=== PATIENT | female | born 1955 | race Caucasian/White ===

== ENCOUNTER 2020-02-24 05:51 | Inpatient (IN) ==
--- NOTE | 2020-01-28 13:32 | PAT Medication Instructions ---
Medication Instructions Date of Service January 28, 2020 Home Medications aspirin [Aspir-81] 81 mg PO QAM calcium carbonate-vitamin D3 [Calcium 600 + D(3)] 2 cap PO QAM celecoxib [Celebrex] 200 mg PO QAM duloxetine 60 mg PO QAM lisinopril-hydrochlorothiazide 1 tab PO QAM loratadine [Claritin] 10 mg PO QAM meloxicam 15 mg PO QAM multivitamin 1 tab PO QAM omega-3 fatty acids [Fish Oil Concentrate] 1,000 mg PO QAM simvastatin 40 mg PO QAM ASK your surgeon for instructions celecoxib [Celebrex] 200 mg PO QAM meloxicam 15 mg PO QAM ASK your prescriber and surgeon aspirin [Aspir-81] 81 mg PO QAM STOP taking 2 weeks before surgery (or as soon as possible if surgery is within 2 weeks) omega-3 fatty acids [Fish Oil Concentrate] 1,000 mg PO QAM DO NOT take the morning of surgery calcium carbonate-vitamin D3 [Calcium 600 + D(3)] 2 cap PO QAM lisinopril-hydrochlorothiazide 1 tab PO QAM loratadine [Claritin] 10 mg PO QAM multivitamin 1 tab PO QAM Take morning of surgery With a small sip of water, OTHERWISE NOTHING TO EAT OR DRINK AFTER MIDNIGHT: duloxetine 60 mg PO QAM simvastatin 40 mg PO QAM Other Notes If you have any questions please call us at [phone] or [phone] or [phone] or [phone]
--- NOTE | 2020-01-31 12:16 | Anesthesiology Consultation ---
Date of Service January 31, 2020 Assessment & Plan (1) Encounter for pre-operative examination: COVID Status: As of 01/30 assessment, patient denies travel to endemic area, known exposure/sick contacts, or symptoms of COVID19. Patient instructed that they and their household members must follow strict social distancing guidelines, wear a mask in public and avoid travel for 14 days prior to surgery. Preoperative COVID19 testing to be completed prior to surgery per surgeon's arra [id number]. Patient made aware to self-isolate as much as possible between COVID testing and surgery. BSG AM DOS Chart Review Chart Review: Acceptable Risk for Surgery (pending CXR faxed for at PAT - and surgeon ordered PCP clearance) and Patient seen in Pre Admission Testing Teaching & Discussion Instructed NPO after midnight before surgery, except medications with 15 cc of water. Medication instructions provided according to the PAT guidelines. History Surgery Operation Date: 02/24/20 10:50 Proposed Procedures p Right Total Shoulder Arthroplasty Aide - Doroteo Jaimes MD Height/Weight Height: 5 ft 4 in Weight: 83.9 kg Allergies Allergy/AdvReac Type Severity Reaction Status Date / Time naproxen [From Aleve] Allergy Unknown Rash Verified 01/28/20 11:45 Medications Home Medications Medication Instructions Recorded Confirmed Last Taken aspirin [Aspir-81] 81 mg PO QAM 01/28/20 01/28/20 Unknown calcium carbonate-vitamin D3 2 cap PO QAM 01/28/20 01/28/20 Unknown [Calcium 600 + D(3)] celecoxib [Celebrex] 200 mg PO QAM 01/28/20 01/28/20 Unknown duloxetine 60 mg PO QAM 01/28/20 01/28/20 Unknown lisinopril-hydrochlorothiazide 1 tab PO QAM 01/28/20 01/28/20 Unknown loratadine [Claritin] 10 mg PO QAM 01/28/20 01/28/20 Unknown meloxicam 15 mg PO QAM 01/28/20 01/28/20 Unknown multivitamin 1 tab PO QAM 01/28/20 01/28/20 Unknown omega-3 fatty acids [Fish Oil 1,000 mg PO QAM 01/28/20 01/28/20 Unknown Concentrate] simvastatin 40 mg PO QAM 01/28/20 01/28/20 Unknown Past Medical History Medical History Anxiety Arthritis Depression Diabetes A1C 7.1%, glucose 161 on pre-op labs. Patient did not report h/o DM, will fax labs to PCP for review. Hyperlipidemia Hypertension Exercise / Class Metabolic Activity II 4-5 Yardwork/Stairs/Walk up hill Past Family History Family History Father Family hx of colon cancer Past Surgical History Surgical History H/O ovarian cystectomy H/O shoulder surgery RIGHT X 2 History of appendectomy History of colonoscopy History of total knee replacement R/L Nausea and vomiting after administration of anesthetic agent S/P foot surgery, left LIGAMENT REPAIR Status post trigger finger release R/L Past Anesthesia History No Hx of Anesthesia Complications (other than PONV) and No Family Hx of Anesthesia Complications History of PONV No Hx of Motion Sickness and History of PONV (single episode after most recent colonoscopy) Social History Smoking Status: Current every day smoker Smoking cigarettes per day: 10 CIGS X 40 YRS Do You Dip or Chew Tobacco: No Hx Alcohol Use: Yes Alcohol type: beer and hard liquor alcohol intake frequency: holidays/special occasions only (once/month) Hx Substance Use: No Review of Systems Pt denies any recent chest pain, shortness of breath, palpitations, cough, fever, URI, or uncontrolled acid reflux. Physical Exam Vital Signs BP: 135/82 P: 118 (pt reports this is baseline, PCP monitors, denies any assc. symptoms) SPO2: 98% RA T: 97.8 F R: 16 ENMT Mouth: no dental restorations, no chipped teeth and no loose teeth Thyromental Distance: < 3.5 Finger Breadths (3) Mallampati Class: I Neck normal visual inspection; neck extension not limited Respiratory normal respiratory effort Auscultation: lungs clear to auscultation bilaterally Cardiovascular Rate/Rhythm: regular rhythm and + tachycardic Heart Sounds: no murmur Vessels: no carotid bruit Extremities: no edema Testing Laboratory Results 01/31/20 12:04 01/31/20 12:04 PT 10.4 Seconds (9.0-12.0) 01/31/20 12:04 INR 1.0 (0.9-1.1) 01/31/20 12:04 APTT 26.1 Seconds (21.0-31.0) 01/31/20 12:04 Hemoglobin A1c 7.1 % (4.5-5.6) H 01/31/20 12:04 Urine Color Yellow 01/31/20 12:04 Urine Appearance Clear (Clear) 01/31/20 12:04 Urine pH 7.0 (4.5-7.5) 01/31/20 12:04 Ur Specific [place] 1.013 (1.000-1.030) 01/31/20 12:04 Urine Protein Negative (Negative) 01/31/20 12:04 Urine Glucose (UA) Negative (Negative) 01/31/20 12:04 Urine Ketones Negative (Negative) 01/31/20 12:04 Urine Nitrite Negative (Negative) 01/31/20 12:04 Ur Leukocyte Esterase Negative (Negative) 01/31/20 12:04 Blood Type A Positive 01/31/20 12:04 Antibody Screen NEGATIVE 01/31/20 12:04 01/31/20 12:04 Urine Culture - Final Urine,Clean Catch More than three types of organisms present, all moderate counts mixed probable skin bienvenido. No further identifications or sensitivities to follow. *Labs forwarded to PCP for review; h/o DM was not reported by patient. Electrocardiogram Date: 01/31/20 Findings: + ST @ (112bpm)
[2020-01-31 12:41] LABS: Appearance Urine Clear (Clear); Basophils # (auto) 0.03 K/uL (0-0.2); Basophils % (auto) 0.4 %; Bilirubin Urine Negative (Negative); Blood Urine Negative (Negative); Color Urine Yellow; Eosinophils # (auto) 0.52 K/uL (0-0.5); Eosinophils % (auto) 6.8 %; Glucose Urine UA Negative (Negative); Hematocrit (blood only) 44.2 % (37-47); Hemoglobin 15.1 g/dL (12.0-16.0); Immature Granulocytes # (auto) 0.02 K/uL (0.00-0.02); Immature Granulocytes % (auto) 0.3 %; Ketones Urine Negative (Negative); Leukocyte Esterase Urine Negative (Negative); Lymphocytes # (auto) 2.21 K/uL (1.2-3.4); Mean Corpuscular Hemoglobin 32.7 pg (25-34); Mean Corpuscular Hgb Conc 34.2 g/dL (32-36); Mean Corpuscular Volume 95.7 fL (80-100); Mean Platelet Volume 9.1 fL (7.4-10.4); Monocytes # (auto) 0.57 K/uL (0.11-0.59); Monocytes % (auto) 7.5 %; Neutrophils # (auto) 4.28 K/uL (1.4-6.5); Nitrite Urine Negative (Negative); Platelet Count 296 K/uL (130-400); Protein Urine Negative (Negative); RDW Coefficient of Variation 13.5 % (11.5-14.5); RDW Standard Deviation 46.4 fL (36.4-46.3); Red Blood Count 4.62 M/uL (4.2-5.4); Specific Gravity Urine 1.013 (1.000-1.030); Urobilinogen Urine Negative (Negative); White Blood Count 7.63 K/uL (4.8-10.8)
[2020-01-31 12:52] LABS: Albumin Level 3.7 gm/dl (3.4-5.0); Calcium 9.6 mg/dl (8.5-10.1); Creatinine Clr Calc Pharmacy 81.5 ml/min; Est GFR (African American) 99.9; Est GFR (Non-African American) 86.2; Potassium 3.9 mmol/L (3.5-5.1)
[2020-01-31 12:53] LABS: Partial Thromboplastin Ratio 0.9; Partial Thromboplastin Time 26.1 Seconds (21.0-31.0); Prothrombin Time 10.4 Seconds (9.0-12.0)
[2020-01-31 13:18] LABS: Estimated Average Glucose 157 mg/dl; Hemoglobin A1C 7.1 % (4.5-5.6)
--- NOTE | 2020-01-31 15:20 | Electrocardiogram Report ---
Test Reason : Blood Pressure : / mmHG Vent. Rate : 112 BPM Atrial Rate : 112 BPM P-R Int : 178 ms QRS Dur : 092 ms QT Int : 336 ms P-R-T Axes : 071 084 074 degrees QTc Int : 458 ms Sinus tachycardia Otherwise normal ECG No previous ECGs available Confirmed by Dakota Adam ([id number]) on 01/31/2020 3:20:12 PM Referred By: Doroteo Jaimes Confirmed By:Dakota Adam
--- NOTE | 2020-02-05 09:55 | History & Physical Report ---
Date of Service February 05, 2020 Assessment & Plan (1) Rotator cuff arthropathy of right shoulder: Treatment options discussed with the patient. She has a massive irreparable rotator cuff tear. She has continued pain and dysfunction despite conservative measures as above. Risks, benefits and alternatives to surgery including but not limited to infection, DVT, pain, stiffness, need for revision surgery, damage to blood vessels, damage to nerves, PE, , were discussed with the patient and they wish to proceed. Plan will be for right reverse total shoulder arthroplasty on 02/24/20 at [facility]. Will plan on home health PT post discharge from the hospital. All questions answered. She will follow up post operatively. History of Present Illness Chief Complaint: Right shoulder pain Primary Care Provider: Nguyen Aguayo 64 year old female with PMHx significant for HTN, high cholesterol, and depression presents with longstanding right shoulder pain. She has had 2 previous rotator cuff repair surgeries which have failed, most recently June of this year. She has continued pain and dysfunction of her shoulder with daily activity. Updated MRI demonstrates massive retracted re tear of her rotator cuff with fatty atrophy and humeral head elevation. she has failed conservative measures including cortisone injection and therapy, as well as anti- inflammatory medicaitons. Patient denies headaches, sweats, fevers, chills, double vision, blurred vision, cough, sore throat, dysphagia, chest pain, sob, wheezing, n/v/d/c, numbness, tingling, fatigue, urinary symptoms, mood disorders. ROS positive for right shoulder pain and stiffness. Allergies Allergy/AdvReac Type Severity Reaction Status Date / Time naproxen [From Aleve] Allergy Unknown Rash Verified 01/28/20 11:45 Home Medications Home Medications Medication Instructions Recorded Confirmed Type aspirin [Aspir-81] 81 mg PO QAM 01/28/20 01/28/20 History calcium carbonate-vitamin D3 2 cap PO QAM 01/28/20 01/28/20 History [Calcium 600 + D(3)] celecoxib [Celebrex] 200 mg PO QAM 01/28/20 01/28/20 History duloxetine 60 mg PO QAM 01/28/20 01/28/20 History lisinopril-hydrochlorothiazide 1 tab PO QAM 01/28/20 01/28/20 History loratadine [Claritin] 10 mg PO QAM 01/28/20 01/28/20 History meloxicam 15 mg PO QAM 01/28/20 01/28/20 History multivitamin 1 tab PO QAM 01/28/20 01/28/20 History omega-3 fatty acids [Fish Oil 1,000 mg PO QAM 01/28/20 01/28/20 History Concentrate] simvastatin 40 mg PO QAM 01/28/20 01/28/20 History Past Med/Surg History Medical History Anxiety Arthritis Depression Diabetes A1C 7.1%, glucose 161 on pre-op labs. Patient did not report h/o DM, will fax labs to PCP for review. Hyperlipidemia Hypertension Surgical History H/O ovarian cystectomy H/O shoulder surgery RIGHT X 2 History of appendectomy History of colonoscopy History of total knee replacement R/L Nausea and vomiting after administration of anesthetic agent S/P foot surgery, left LIGAMENT REPAIR Status post trigger finger release R/L Family History Father Family hx of colon cancer Social History Smoking Status: Current every day smoker Cigarettes Per Day: 10 CIGS X 40 YRS; Second Hand Exposure: No; Do You Dip or Chew Tobacco: No; Hx Alcohol Use: Yes Alcohol type: beer and hard liquor Hx Substance Use: No Preferred Language: [place] Communication Ability: Effective Fire Hazard Inspector Required: No Beliefs That Will Affect Care: None Current Living Situation: Spouse Other Information That Helps Us Care for You: No Feels Safe at Home: Yes Safety Concerns: Feels Safe At This Time Review of Systems All systems reviewed & are unremarkable except as noted in HPI & below Physical Exam Constitutional: well developed and well nourished; no acute distress Eyes: PERRL, conjunctivae normal, anicteric sclerae ENMT: external ear and nose normal, oropharynx normal Neck: trachea midline, no thyromegaly Respiratory: normal respiratory effort, lungs clear to auscultation Cardiovascular: RRR, no murmur, no edema Musculoskeletal: Right shoulder: Active forward flexion 0 to 90 degrees active abduction 0 to 80 degrees external rotation is to neutral internal rotation is to the back pocket. Weakness to supraspinatus, infraspinatus, subscapularis Skin: no rashes, warm and dry Neurologic: patellar DTR's 2+ bilat, sensation intact Psychiatric: A+Ox3, euthymic affect Results & Data ([facility]) Laboratory Results Lab Results 01/31/20 01/31/20 01/31/20 Range/Units 12:04 12:04 12:04 WBC 7.63 (4.8-10.8) K/uL RBC 4.62 (4.2-5.4) M/uL Hgb 15.1 (12.0-16.0) g/dL Hct 44.2 (37-47) % MCV 95.7 (80-100) fL MCH 32.7 (25-34) pg MCHC 34.2 (32-36) g/dL RDW Std Deviation 46.4 H (36.4-46.3) fL RDW Coeff of Meliza 13.5 (11.5-14.5) % Plt Count 296 (130-400) K/uL MPV 9.1 (7.4-10.4) fL Immature Gran % (Auto) 0.3 % Neut % (Auto) 56.0 % Lymph % (Auto) 29.0 % [place] % (Auto) 7.5 % Eos % (Auto) 6.8 % Baso % (Auto) 0.4 % Neut # (Auto) 4.28 (1.4-6.5) K/uL Lymph # (Auto) 2.21 (1.2-3.4) K/uL [place] # (Auto) 0.57 (0.11-0.59) K/uL Eos # (Auto) 0.52 H (0-0.5) K/uL Baso # (Auto) 0.03 (0-0.2) K/uL Immature Gran # (Auto) 0.02 (0.00-0.02) K/uL PT 10.4 (9.0-12.0) Seconds INR 1.0 (0.9-1.1) APTT 26.1 (21.0-31.0) Seconds PTT Ratio 0.9 Sodium 138 (136-145) mmol/L Potassium 3.9 (3.5-5.1) mmol/L Chloride 103 (98-107) mmol/L Carbon Dioxide 29 (21-32) mmol/L Anion Gap 5.0 (3-11) BUN 22 H (7-18) mg/dl Creatinine 0.74 (0.6-1.2) mg/dl Est Cr Clr Drug Dosing 81.5 ml/min Est GFR ( Amer) 99.9 Est GFR (Non-Af Amer) 86.2 BUN/Creatinine Ratio 29.0 H (10-20) Glucose 161 H (70-99) mg/dl Estimat Average Glucose mg/dl Hemoglobin A1c (4.5-5.6) % Calcium 9.6 (8.5-10.1) mg/dl Albumin 3.7 (3.4-5.0) gm/dl Urine Color Urine Appearance (Clear) Urine pH (4.5-7.5) Ur Specific [place] (1.000-1.030) Urine Protein (Negative) Urine Glucose (UA) (Negative) Urine Ketones (Negative) Urine Blood (Negative) Urine Nitrite (Negative) Urine Bilirubin (Negative) Urine Urobilinogen (Negative) Ur Leukocyte Esterase (Negative) Blood Type Antibody Screen 01/31/20 01/31/20 01/31/20 Range/Units 12:04 12:04 12:04 WBC (4.8-10.8) K/uL RBC (4.2-5.4) M/uL Hgb (12.0-16.0) g/dL Hct (37-47) % MCV (80-100) fL MCH (25-34) pg MCHC (32-36) g/dL RDW Std Deviation (36.4-46.3) fL RDW Coeff of Meliza (11.5-14.5) % Plt Count (130-400) K/uL MPV (7.4-10.4) fL Immature Gran % (Auto) % Neut % (Auto) % Lymph % (Auto) % [place] % (Auto) % Eos % (Auto) % Baso % (Auto) % Neut # (Auto) (1.4-6.5) K/uL Lymph # (Auto) (1.2-3.4) K/uL [place] # (Auto) (0.11-0.59) K/uL Eos # (Auto) (0-0.5) K/uL Baso # (Auto) (0-0.2) K/uL Immature Gran # (Auto) (0.00-0.02) K/uL PT (9.0-12.0) Seconds INR (0.9-1.1) APTT (21.0-31.0) Seconds PTT Ratio Sodium (136-145) mmol/L Potassium (3.5-5.1) mmol/L Chloride (98-107) mmol/L Carbon Dioxide (21-32) mmol/L Anion Gap (3-11) BUN (7-18) mg/dl Creatinine (0.6-1.2) mg/dl Est Cr Clr Drug Dosing ml/min Est GFR ( Amer) Est GFR (Non-Af Amer) BUN/Creatinine Ratio (10-20) Glucose (70-99) mg/dl Estimat Average Glucose 157 mg/dl Hemoglobin A1c 7.1 H (4.5-5.6) % Calcium (8.5-10.1) mg/dl Albumin (3.4-5.0) gm/dl Urine Color Yellow Urine Appearance Clear (Clear) Urine pH 7.0 (4.5-7.5) Ur Specific [place] 1.013 (1.000-1.030) Urine Protein Negative (Negative) Urine Glucose (UA) Negative (Negative) Urine Ketones Negative (Negative) Urine Blood Negative (Negative) Urine Nitrite Negative (Negative) Urine Bilirubin Negative (Negative) Urine Urobilinogen Negative (Negative) Ur Leukocyte Esterase Negative (Negative) Blood Type A Positive Antibody Screen NEGATIVE Diagnostic Findings Right shoulder MRI demonstrates massive retracted rotator cuff tear with humeral head elevation, glenohumeral arthrosis.
[2020-02-24] MEDS ORDERED: FAMOTIDINE 20 MG TAB PO SCH (06:00)
[2020-02-24] MEDS ORDERED: CEFAZOLIN 2000MG 2,000 MG/15 ML SYR IV SCH (06:00)
[2020-02-24] MEDS ORDERED: CeleBREX 200 MG CAP PO SCH (06:00)
[2020-02-24] MEDS ORDERED: ROPIVACAINE 0.5% HCL/PF 150 MG, BUPIVACAINE 0.5% MPF 30 ML, EPINEPHrine 30MG/30ML (OR U... INSTIL SCH (06:00)
[2020-02-24] MEDS ORDERED: dexAMETHasone 4 MG TAB PO SCH (06:00)
[2020-02-24] MEDS ORDERED: ACETAMINOPHEN 500 MG TAB PO SCH (06:00)
[2020-02-24] MEDS ORDERED: LR 15ML/HR IV SCH (06:00)
[2020-02-24] MEDS ORDERED: METOCLOPRAMIDE HCL 10 MG TABLET PO SCH (06:00)
[2020-02-24] MEDS ORDERED: GABAPENTIN 600 MG DOSE PO SCH (06:00)
[2020-02-24] MEDS ORDERED: ROPIVACAINE 0.5% 5 MG/ML 30 ML VIAL ONE (06:30)
[2020-02-24] MEDS ORDERED: ePHEDrine sulfate 50 MG/ML SYR ONE (06:41)
[2020-02-24] MEDS ORDERED: NEOSTIGMINE METHYLSULFATE 5 MG/5 ML SYR ONE (06:41)
[2020-02-24] MEDS ORDERED: MIDAZOLAM HCL 1 MG/ML 2ML VIAL ONE (06:41)
[2020-02-24] MEDS ORDERED: DEXAMETHASONE SOD INJ 4 MG/ML VIAL ONE (06:41)
[2020-02-24] MEDS ORDERED: ROCURONIUM BROMIDE 10 MG/ML 5 ML VIAL IV ONE ×2 (06:41→11:16)
[2020-02-24] MEDS ORDERED: PHENYLEPHRINE 100MCG/ML 5ML SYR ONE (06:41)
[2020-02-24] MEDS ORDERED: LARYING-O-JET KIT (LTA) ONE (06:41)
[2020-02-24] MEDS ORDERED: fentaNYL citrate 100 MCG/2 ML VIAL ONE (06:41)
[2020-02-24] MEDS ORDERED: LIDOCAINE HCL 2% 2 ML VIAL/AMP(20MG/ML) INFIL ONE (06:41)
[2020-02-24] MEDS ORDERED: PROPOFOL IV EMULSION 10 MG/ML 20 ML VIAL IV ONE (06:41)
[2020-02-24] MEDS ORDERED: GLYCOPYRROLATE 0.2 MG/ML VIAL ONE (06:41)
[2020-02-24] MEDS ORDERED: ONDANSETRON INJ 2 MG/ML 2 ML VIAL ONE (06:41)
--- NOTE | 2020-02-24 06:58 | History & Physical Bridge Note ---
Date of Service February 24, 2020 History & Physical Bridge Note I have examined the patient, reviewed the History & Physical and in the interval since the performance of the History & Physical I have noted the following changes of clinical significance: no changes noted
[2020-02-24] MEDS ORDERED: BACITRACIN INJ 50,000 UNIT VIAL ONE (07:12)
[2020-02-24] MEDS ORDERED: HYDROmorphone INJ 1 MG/ML SYRINGE IV PRN (07:58)
[2020-02-24] MEDS ORDERED: ONDANSETRON INJ 2 MG/ML 2 ML VIAL IV PRN ×2 (07:58→13:24)
[2020-02-24] MEDS ORDERED: ATROPINE SULFATE 0.1 MG/ML 10ML SYR IV PRN (07:58)
[2020-02-24] MEDS ORDERED: VANCOMYCIN HCL 1000MG/20ML VIAL ONE (09:06)
[2020-02-24] MEDS ORDERED: PHENYLEPHRINE HCL 10 MG/ML VIAL ONE (11:34)
--- NOTE | 2020-02-24 12:14 | Operative Report ---
Post Operative Report Pre & Post Diagnosis Operation Date: 02/24/20 08:00 Pre-Op Diagnosis: Right Shoulder rotator cuff arthropathy Post-Op Diagnosis: Right Shoulder rotator cuff arthropathy I identified the patient and participated in the time-out.: Yes Procedure Operation Date: 02/24/20 08:00 Actual Procedures p Right Reverse Total Shoulder Arthroplasty; Open Reduction Internal Fixation of Humeral Fracture(Right) - Doroteo Jaimes MD Surgeon Doroteo Jaimes MD Supply Chain Program Manager Bertin Grady PA-C Estimated Blood Loss 50 Findings Consistent with Post-Op Diagnosis Specimens Bone and tissue Drains 1 Hemovac Anesthesia Type General Regional Complications Intraoperative proximal humerus fracture. This was treated with cable fixation and placement of a longer press-fit stem. Disposition Accompanied Patient To Recovery: No Disposition: Recovery Room Indications Patient is a 64-year-old female who has had multiple attempts at rotator cuff repair. MRI has demonstrated re-tear with massive tearing and retraction back to the level of the glenoid with significant superior humeral head migration. She is failed conservative measures including cortisone injection, physical therapy, anti-inflammatory medications and wishes to proceed with a right reverse total shoulder arthroplasty Description of Procedure Risks, benefits and alternatives to surgery including, but not limited to, infection DVT, pain, stiffness, need for revision surgery, failure to relieve all symptoms, damage to blood vessels, damage to nerves, risk of anesthesia were discussed with the patient and they wished to proceed. The patient was identified. Laterality was confirmed and marked. The patient received a preoperative antibiotic as well as an interscalene block. They were transferred to the operating room and placed in the supine position and induced into general endotracheal anesthesia per the anesthesia staff. The patient was then safely transferred to a slight beachchair position. The patient was secured in the Tenet positioner. All pressure points were well padded. The shoulder was prepped and draped in the usual sterile manner with ChloraPrep. The arm was secured in the Spider cazares. I made a longitudinal incision just lateral to the coracoid, sharply incising through the skin and utilizing Bovie electrocautery to achieve hemostasis. I identified the cephalic vein and mobilized it laterally with the deltoid. I mobilize the pectoralis and mobilize this medially releasing a small portion of the upper border of the pec tendon to improve visualization. I then identified and mobilized the conjoined tendon. I identified the long head of the biceps tendon. The biceps tendon was scarred to the humerus consistent with her previous biceps tenodesis. I then released the subscapularis. I pinned into place my humeral head version cutting guide and made my humeral head resection. There were numerous rotator cuff anchors within the humerus. There is based on her MRI either 7 or 8 rotator cuff repair anchors as she has had multiple attempts at rotator cuff repair given her young age. There was a significant area laterally in the region of the greater tuberosity that essentially just had a big hole. Region measured about 1 cm x 1. This is consistent with region where lateral row cuff anchors have been placed. There appeared to be some resorption of the bone around some of the screws. The suture anchors were removed. I then sequentially reamed and sequentially broached. I had difficulty in getting the size 6 (which is the smallest in the system) to see down in to the proximal humerus. There was a fair amount of sclerotic bone that I removed with a combination of curette as well as rongeur. There was also several rotator cuff anchors that I would then encounter as a try to advance the broach I would remove the broach find another suture anchor remove it. Then try to advance the broach and it would stop and then I would find another suture anchor. I was finally able to get the size 6 preserve short stem trial into position. It was still a bit more proud than I would typically like but I was concerned about it trying to advance it too far and causing a humerus fracture. So I elected to leave the size 6 proud. I then placed the trial humeral stem into the shoulder. I placed retractors around the glenoid and then excised the residual glenoid labrum. I elevated the soft tissues and the inferior aspect of the glenoid to improve exposure and released tissues circumferentially. I then positioned and drilled for the central post for the glenoid plate. The glenoid plate was bone grafted with bone taken from the humeral head. I impacted the definitive glenoid plate into position and then placed a total of 4 compression screws that were then locked into position with locking caps. I then placed the glenosphere onto the plate and secured it with a locking screw. I then removed the trial humeral stem and placed the definitive humeral stem. I trialed off of the definitive stem. I felt I would be able to get a 0 humeral tray and 0 polyliner reduced. I then attempted to reduce the definitive humerus implants. As I was attempting to reduce this pulling traction and putting the humerus onto the glenosphere there is a crack and I discovered that there had become a fracture near the stem. The fracture connected from the region of the anterior medial corner of the stem back around to the area of the proximal humerus that had the holes from her previous rotator cuff repairs. It did not displace completely off but was simply hinged. I removed the short stem. I held the humerus and in appropriate position and fixed the fracture with a 2 mm cable. I tensioned this to about 50 and then crimped the sleeve and then cut the cable flush. I then switched to a longer press-fit stem. The proximal geometry of the long press-fit stem is different than the short stem. I sequentially reamed and sequentially broached up to a size 9. I trialed off of the trial stem and would still be able to use the +0 +0. The trial components were removed. The wound was thoroughly irrigated. I put all of the components together on the back table including the stem locking the humeral tray into place as well as the polyethylene liner and then impacted that as 1 unit. There was good stability to the implant and I was able to have good tension to the soft tissues once I reduced the shoulder. The definitive components used were [employer] Equinox: Standard length press-fit stem: 9 Size small glenoid plate Glenosphere: 36 Humeral tray:+ 0 Humeral polyethylene liner: + 0 I thoroughly irrigated the wound. Deep tissues were anesthetized with an orthomix solution. I then locked my definitive humeral tray into position with a torque limiting screw. I then impacted the definitive humeral polyethylene liner into position. I then reduced the shoulder. There was good range of motion and good stability after the reduction. The wound was again thoroughly irrigated and a Betadine soak was performed. A deep drain was placed. The deltopectoral interval was closed with interrupted #1 Ethibond suture. The subcutaneous tissue was closed with interrupted 2-0 Vicryl suture. The skin was closed with leisa. A sterile dressing was applied. A sling was placed. All needle and sponge counts were correct at the end of the procedure. The patient was transferred to the PACU in stable condition without apparent complication. The PA-C was necessary for assistance with procedure for assistance in positioning, prepping, draping, retraction and closure. I discussed the intraoperative complication and what was done to correct it with the patient's and I will be discussing this with the patient once she is awake. I attest to the content of the Intraoperative Record and any orders documented therein. Any exceptions are noted below.
--- NOTE | 2020-02-24 12:36 | XRay Report ---
XR shoulder RT min 2V routine CLINICAL HISTORY: Post shoulder surgery COMPARISON STUDY: None. FINDINGS: Status post reverse right total shoulder arthroplasty. The hardware is intact. No fracture or dislocation. Skin leisa and surgical drains are in place. IMPRESSION: Status post reverse right total shoulder arthroplasty. No evidence for hardware complica tion. ACT 112: Negative or not required by law. Electronically signed by: Gelacio Arevalo M.D. 02/24/2020 12:35 PM
--- NOTE | 2020-02-24 13:11 | Anesthesiology Progress Note ---
Date of Service February 24, 2020 Anesthesia Post Procedure Vital Signs Vital Signs: Temp Pulse Pulse Resp BP Pulse Ox 02/24/20 13:01 36.5 C 96 H 16 107/61 94 02/24/20 12:40 92 H 18 101/59 L 92 02/24/20 12:30 90 14 104/62 96 02/24/20 12:20 95 H 14 119/80 96 02/24/20 12:10 36.4 C L 98 H 14 121/72 97 02/24/20 07:12 36.7 C 98 H 20 131/90 95 02/24/20 06:33 36.6 C 96 H 20 142/86 H 97 Pain Intensity Right Shoulder: Pain Intensity: 10 Transfer of Care Handoff Completed per policy Notes Mental Status: alert / awake / arousable Patient Amnestic to Procedure: Yes Nausea / Vomiting: adequately controlled Pain: adequately controlled Airway Patency, RR, SpO2: stable & adequate BP & HR: stable & adequate Hydration State: stable & adequate Anesthetic Complications: no major complications apparent
[2020-02-24] MEDS ORDERED: MAGNESIUM HYDROXIDE SUSP 30 ML UDC PO PRN (13:24)
[2020-02-24] MEDS ORDERED: bisacodyL 10 MG SUPP PR PRN (13:24)
[2020-02-24] MEDS ORDERED: NALOXONE HCL 0.4 MG/1 ML VIAL/CARP IV PRN (13:24)
[2020-02-24] MEDS ORDERED: HYDROmorphone INJ 0.5 MG/0.5 ML SYR IV PRN (13:24)
[2020-02-24] MEDS ORDERED: PHARMACY GLYCEMIC MGMT CONSULT PRN (13:29)
[2020-02-24] MEDS ORDERED: INSULIN GLARGINE SOLOSTAR 100 UNITS/ML 3 ML PEN SC ONE (13:45)
[2020-02-24] MEDS: SODIUM CHLORIDE 0.9% 1000ML 1,000 ML IV SCH ×2 (13:47→23:41)
--- NOTE | 2020-02-24 13:52 | Pharmacy Report ---
Pharmacy Glycemic Short Note 2 - Date of Service February 24, 2020 - Glycemic Short BSG Results (Last 24 hours): 02/24/20 02/24/20 06:18 12:14 POC Glucose 134 H 208 H OUTPATIENT ANTIDIABETIC REGIMEN: * Metformin 500 mg BID- started on 02/02/2020 * A1c 7.1% 01/31/20 ASSESSMENT: * Ms. Ariza was recently started on metformin 500 mg BID outpatient after A1c of 7.1% * Elevated BSG after surgery, received 8 mg PO dexamethasone prior to surgery, 4 mg IV intraop * Will give initial full stress of 2 lantus dose x 1, further dosing determined by BSG trend * Will start novolog parameters between weight based stress of 2 and 3 given steroid administration PLAN FOR INPATIENT GLYCEMIC CONTROL: * Hold outpatient oral diabetes medications * Basal insulin * Lantus 28 units x1 * Bolus insulin * NovoLog per scale ACHS or Q6hrs while NPO * Goal Range: Low 110 mg/dL - High 140 mg/dL * Correction Factor: 25 mg/dL/unit * Nutritional / Prandial insulin per carb ratio of 1 unit per 8 grams CHO consumed PLAN FOR DISCHARGE: * Patient with recent diabetes diagnosis, started on metformin ~3 weeks ago, f/u with outpatient provider. Continue to encourage lifestyle modifications
[2020-02-24] MEDS: INSULIN ASPART 100 UNITS/ML 3 ML PEN SC SCH ×3 (14:08→20:48)
[2020-02-24] MEDS: ACETAMINOPHEN 500 MG TAB PO SCH ×2 (14:11→21:08)
[2020-02-24] MEDS ORDERED: GLUCOSE 40% GEL 15 GM TUBE PO PRN (14:30)
[2020-02-24] MEDS ORDERED: GLUCOSE 10 TABS/TUBE PO PRN (14:30)
[2020-02-24] MEDS ORDERED: GLUCAGON FOR INJ 1 MG VIAL SQ PRN (14:30)
[2020-02-24] MEDS ORDERED: CARBOHYDRATES FOR HYPOGLYCEMIA PO PRN (14:30)
[2020-02-24] MEDS ORDERED: DEXTROSE 50% 50 ML SYRINGE IV PRN (14:30)
[2020-02-24] MEDS: CEFAZOLIN 2000MG 2,000 MG/15 ML SYR IV SCH (15:50)
[2020-02-24] MEDS: DOCUSATE SODIUM 100 MG CAP PO SCH (20:48)
[2020-02-24] MEDS ORDERED: SENNA 8.6 MG TAB PO SCH (21:00)
[2020-02-25] MEDS: CEFAZOLIN 2000MG 2,000 MG/15 ML SYR IV SCH (00:06)
[2020-02-25] MEDS: ACETAMINOPHEN 500 MG TAB PO SCH (04:07)
[2020-02-25] MEDS: OXYCODONE HCL IR 5 MG TAB (IMMEDIATE RELEASE) PO PRN ×2 (04:20→08:23)
[2020-02-25 06:05] LABS: Eosinophils # (auto) 0.01 K/uL (0-0.5); Eosinophils % (auto) 0.1 %; Hematocrit (blood only) 36.5 % (37-47); Hemoglobin 12.1 g/dL (12.0-16.0); Immature Granulocytes # (auto) 0.02 K/uL (0.00-0.02); Immature Granulocytes % (auto) 0.2 %; Lymphocytes # (auto) 1.52 K/uL (1.2-3.4); Lymphocytes % (auto) 12.7 %; Mean Corpuscular Hemoglobin 32.1 pg (25-34); Mean Corpuscular Hgb Conc 33.2 g/dL (32-36); Mean Corpuscular Volume 96.8 fL (80-100); Mean Platelet Volume 9.2 fL (7.4-10.4); Monocytes # (auto) 1.32 K/uL (0.11-0.59); Platelet Count 268 K/uL (130-400); RDW Coefficient of Variation 13.7 % (11.5-14.5); RDW Standard Deviation 48.2 fL (36.4-46.3); Red Blood Count 3.77 M/uL (4.2-5.4); White Blood Count 11.97 K/uL (4.8-10.8)
[2020-02-25 06:23] LABS: BUN Creatinine Ratio 18.7 (10-20); Calcium 8.3 mg/dl (8.5-10.1); Creatinine Clr Calc Pharmacy 101.6 ml/min; Est GFR (African American) 113.1; Est GFR (Non-African American) 97.5; Potassium 3.9 mmol/L (3.5-5.1)
--- NOTE | 2020-02-25 07:12 | Orthopedic Progress Note ---
Date of Service February 25, 2020 Assessment & Plan (1) Rotator cuff arthropathy of right shoulder: POD#1 Right reverse TSA with ORIF of intraoperative proximal humerus fracture -Pain management -PT/OT-No shoulder motion at this time. Will hold on formal PT at discharge due to intraoperative humerus fracture. May do shoulder shrugs, elbow/wrist/hand motion. -DVT prophylaxis-[id number] once daily, SCDs -AM labs as above -Patient sustained an intraoperative humerus fracture requiring ORIF. Dr. Jaimes discussed this in detail with patient and her post operatively. All questions were answered. -D/C planning-plan to discharge home later today as long as remains stable. Admission and Anticipated Discharge Date Admission Date: February 24, 2020 Subjective POD#1. Patient doing okay this morning, increased pain this morning since block has worn off. No other complaints at this time. Denies chest pain, sob, n/v/d, light headedness. Hoping to go home today. Review of Systems Review of Systems: All systems reviewed & are unremarkable except as noted in HPI & below Physical Exam Physical Exam: Sling in place to right arm, dressing is c/d/i. Hemovac intact. Fingers are mobile with good dorsiflexion, good art consultant strength. Distally n/v status and sensation are intact. Constitutional: WD/WN, vitals as above no acute distress Results & Data ([facility]) Vital Signs (Past 12 Hours) Vital Signs Temp Pulse Resp BP Pulse Ox 02/25/20 04:05 36.6 C 101 H 18 138/89 92 02/24/20 23:34 36.8 C 108 H 14 103/64 92 Laboratory Results Lab Results 01/31/20 01/31/20 01/31/20 Range/Units 12:04 12:04 12:04 WBC 7.63 (4.8-10.8) K/uL RBC 4.62 (4.2-5.4) M/uL Hgb 15.1 (12.0-16.0) g/dL Hct 44.2 (37-47) % MCV 95.7 (80-100) fL MCH 32.7 (25-34) pg MCHC 34.2 (32-36) g/dL RDW Std Deviation 46.4 H (36.4-46.3) fL RDW Coeff of Meliza 13.5 (11.5-14.5) % Plt Count 296 (130-400) K/uL MPV 9.1 (7.4-10.4) fL Immature Gran % (Auto) 0.3 % Neut % (Auto) 56.0 % Lymph % (Auto) 29.0 % Winston % (Auto) 7.5 % Eos % (Auto) 6.8 % Baso % (Auto) 0.4 % Neut # (Auto) 4.28 (1.4-6.5) K/uL Lymph # (Auto) 2.21 (1.2-3.4) K/uL Winston # (Auto) 0.57 (0.11-0.59) K/uL Eos # (Auto) 0.52 H (0-0.5) K/uL Baso # (Auto) 0.03 (0-0.2) K/uL Immature Gran # (Auto) 0.02 (0.00-0.02) K/uL PT 10.4 (9.0-12.0) Seconds INR 1.0 (0.9-1.1) APTT 26.1 (21.0-31.0) Seconds PTT Ratio 0.9 Sodium 138 (136-145) mmol/L Potassium 3.9 (3.5-5.1) mmol/L Chloride 103 (98-107) mmol/L Carbon Dioxide 29 (21-32) mmol/L Anion Gap 5.0 (3-11) BUN 22 H (7-18) mg/dl Creatinine 0.74 (0.6-1.2) mg/dl Est Cr Clr Drug Dosing 81.5 ml/min Est GFR ( Amer) 99.9 Est GFR (Non-Af Amer) 86.2 BUN/Creatinine Ratio 29.0 H (10-20) Glucose 161 H (70-99) mg/dl POC Glucose (70-99) mg/dl Estimat Average Glucose mg/dl Hemoglobin A1c (4.5-5.6) % Calcium 9.6 (8.5-10.1) mg/dl Albumin 3.7 (3.4-5.0) gm/dl Urine Color Urine Appearance (Clear) Urine pH (4.5-7.5) Ur Specific Zenda (1.000-1.030) Urine Protein (Negative) Urine Glucose (UA) (Negative) Urine Ketones (Negative) Urine Blood (Negative) Urine Nitrite (Negative) Urine Bilirubin (Negative) Urine Urobilinogen (Negative) Ur Leukocyte Esterase (Negative) Blood Type Antibody Screen 01/31/20 01/31/20 01/31/20 Range/Units 12:04 12:04 12:04 WBC (4.8-10.8) K/uL RBC (4.2-5.4) M/uL Hgb (12.0-16.0) g/dL Hct (37-47) % MCV (80-100) fL MCH (25-34) pg MCHC (32-36) g/dL RDW Std Deviation (36.4-46.3) fL RDW Coeff of Meliza (11.5-14.5) % Plt Count (130-400) K/uL MPV (7.4-10.4) fL Immature Gran % (Auto) % Neut % (Auto) % Lymph % (Auto) % Winston % (Auto) % Eos % (Auto) % Baso % (Auto) % Neut # (Auto) (1.4-6.5) K/uL Lymph # (Auto) (1.2-3.4) K/uL Winston # (Auto) (0.11-0.59) K/uL Eos # (Auto) (0-0.5) K/uL Baso # (Auto) (0-0.2) K/uL Immature Gran # (Auto) (0.00-0.02) K/uL PT (9.0-12.0) Seconds INR (0.9-1.1) APTT (21.0-31.0) Seconds PTT Ratio Sodium (136-145) mmol/L Potassium (3.5-5.1) mmol/L Chloride (98-107) mmol/L Carbon Dioxide (21-32) mmol/L Anion Gap (3-11) BUN (7-18) mg/dl Creatinine (0.6-1.2) mg/dl Est Cr Clr Drug Dosing ml/min Est GFR ( Amer) Est GFR (Non-Af Amer) BUN/Creatinine Ratio (10-20) Glucose (70-99) mg/dl POC Glucose (70-99) mg/dl Estimat Average Glucose 157 mg/dl Hemoglobin A1c 7.1 H (4.5-5.6) % Calcium (8.5-10.1) mg/dl Albumin (3.4-5.0) gm/dl Urine Color Yellow Urine Appearance Clear (Clear) Urine pH 7.0 (4.5-7.5) Ur Specific Zenda 1.013 (1.000-1.030) Urine Protein Negative (Negative) Urine Glucose (UA) Negative (Negative) Urine Ketones Negative (Negative) Urine Blood Negative (Negative) Urine Nitrite Negative (Negative) Urine Bilirubin Negative (Negative) Urine Urobilinogen Negative (Negative) Ur Leukocyte Esterase Negative (Negative) Blood Type A Positive Antibody Screen NEGATIVE 02/24/20 02/24/20 02/24/20 Range/Units 06:18 12:14 17:19 WBC (4.8-10.8) K/uL RBC (4.2-5.4) M/uL Hgb (12.0-16.0) g/dL Hct (37-47) % MCV (80-100) fL MCH (25-34) pg MCHC (32-36) g/dL RDW Std Deviation (36.4-46.3) fL RDW Coeff of Meliza (11.5-14.5) % Plt Count (130-400) K/uL MPV (7.4-10.4) fL Immature Gran % (Auto) % Neut % (Auto) % Lymph % (Auto) % Winston % (Auto) % Eos % (Auto) % Baso % (Auto) % Neut # (Auto) (1.4-6.5) K/uL Lymph # (Auto) (1.2-3.4) K/uL Winston # (Auto) (0.11-0.59) K/uL Eos # (Auto) (0-0.5) K/uL Baso # (Auto) (0-0.2) K/uL Immature Gran # (Auto) (0.00-0.02) K/uL PT (9.0-12.0) Seconds INR (0.9-1.1) APTT (21.0-31.0) Seconds PTT Ratio Sodium (136-145) mmol/L Potassium (3.5-5.1) mmol/L Chloride (98-107) mmol/L Carbon Dioxide (21-32) mmol/L Anion Gap (3-11) BUN (7-18) mg/dl Creatinine (0.6-1.2) mg/dl Est Cr Clr Drug Dosing ml/min Est GFR ( Amer) Est GFR (Non-Af Amer) BUN/Creatinine Ratio (10-20) Glucose (70-99) mg/dl POC Glucose 134 H 208 H 245 H (70-99) mg/dl Estimat Average Glucose mg/dl Hemoglobin A1c (4.5-5.6) % Calcium (8.5-10.1) mg/dl Albumin (3.4-5.0) gm/dl Urine Color Urine Appearance (Clear) Urine pH (4.5-7.5) Ur Specific Zenda (1.000-1.030) Urine Protein (Negative) Urine Glucose (UA) (Negative) Urine Ketones (Negative) Urine Blood (Negative) Urine Nitrite (Negative) Urine Bilirubin (Negative) Urine Urobilinogen (Negative) Ur Leukocyte Esterase (Negative) Blood Type Antibody Screen 02/24/20 02/25/20 02/25/20 Range/Units 20:39 05:24 05:24 WBC 11.97 H (4.8-10.8) K/uL RBC 3.77 L (4.2-5.4) M/uL Hgb 12.1 (12.0-16.0) g/dL Hct 36.5 L (37-47) % MCV 96.8 (80-100) fL MCH 32.1 (25-34) pg MCHC 33.2 (32-36) g/dL RDW Std Deviation 48.2 H (36.4-46.3) fL RDW Coeff of Meliza 13.7 (11.5-14.5) % Plt Count 268 (130-400) K/uL MPV 9.2 (7.4-10.4) fL Immature Gran % (Auto) 0.2 % Neut % (Auto) 76.0 % Lymph % (Auto) 12.7 % Winston % (Auto) 11.0 % Eos % (Auto) 0.1 % Baso % (Auto) 0.0 % Neut # (Auto) 9.10 H (1.4-6.5) K/uL Lymph # (Auto) 1.52 (1.2-3.4) K/uL Winston # (Auto) 1.32 H (0.11-0.59) K/uL Eos # (Auto) 0.01 (0-0.5) K/uL Baso # (Auto) 0.00 (0-0.2) K/uL Immature Gran # (Auto) 0.02 (0.00-0.02) K/uL PT (9.0-12.0) Seconds INR (0.9-1.1) APTT (21.0-31.0) Seconds PTT Ratio Sodium 142 (136-145) mmol/L Potassium 3.9 (3.5-5.1) mmol/L Chloride 110 H (98-107) mmol/L Carbon Dioxide 28 (21-32) mmol/L Anion Gap 4.0 (3-11) BUN 11 (7-18) mg/dl Creatinine 0.59 L (0.6-1.2) mg/dl Est Cr Clr Drug Dosing 101.6 ml/min Est GFR ( Amer) 113.1 Est GFR (Non-Af Amer) 97.5 BUN/Creatinine Ratio 18.7 (10-20) Glucose 88 (70-99) mg/dl POC Glucose 293 H (70-99) mg/dl Estimat Average Glucose mg/dl Hemoglobin A1c (4.5-5.6) % Calcium 8.3 L (8.5-10.1) mg/dl Albumin (3.4-5.0) gm/dl Urine Color Urine Appearance (Clear) Urine pH (4.5-7.5) Ur Specific Zenda (1.000-1.030) Urine Protein (Negative) Urine Glucose (UA) (Negative) Urine Ketones (Negative) Urine Blood (Negative) Urine Nitrite (Negative) Urine Bilirubin (Negative) Urine Urobilinogen (Negative) Ur Leukocyte Esterase (Negative) Blood Type Antibody Screen
[2020-02-25] MEDS ORDERED: METFORMIN HCL 500 MG TAB PO SCH (08:00)
[2020-02-25] MEDS: DOCUSATE SODIUM 100 MG CAP PO SCH (08:26)
[2020-02-25] MEDS: INSULIN ASPART 100 UNITS/ML 3 ML PEN SC SCH (08:30)
[2020-02-25] MEDS ORDERED: ASPIRIN 81 MG ECTAB PO SCH (09:00)
[2020-02-25] MEDS ORDERED: MULTIVITAMIN TAB PO SCH ×2 (09:00)
[2020-02-25] MEDS ORDERED: LISINOPRIL/HCTZ 20/25MG 1 TAB PO SCH (09:00)
[2020-02-25] MEDS ORDERED: LORATADINE 10 MG TAB PO SCH (09:00)
[2020-02-25] MEDS ORDERED: INSULIN GLARGINE SOLOSTAR 100 UNITS/ML 3 ML PEN SC SCH (09:00)
[2020-02-25] MEDS ORDERED: SIMVASTATIN 40 MG TAB PO SCH (09:00)
[2020-02-25] MEDS ORDERED: DULOXETINE HCL 60 MG CAP PO SCH (09:00)
--- NOTE | 2020-03-06 14:40 | Discharge Summary (DS) ---
DISCHARGE DIAGNOSES: Right shoulder rotator cuff arthropathy. SECONDARY DIAGNOSES: Anxiety, depression, diabetes mellitus type 2, hyperlipidemia, hypertension. CONSULTS: None. COMPLICATIONS: None. PROCEDURES: Right reverse total shoulder arthroplasty with open reduction internal fixation of humeral fracture by Dr. Jaimes on 02/24/2020. BRIEF HISTORY: As dictated in the history and physical. HOSPITAL SUMMARY: The patient was admitted on the above-noted date and had the above-noted surgery performed, which she tolerated well. On her first postoperative day, she was doing okay that morning, increased pain this morning since block was worn off, she had no other complaints at that time. Denies chest pain, shortness of breath, nausea or vomiting. She had no lightheadedness. She was hoping to go home. Sling was in place. Dressing was intact. Hemovac intact. Fingers were mobile with good flexion and good fur blower operator strength. Distal neurovascular status and sensation are intact. Vital signs were stable and she was mildly tachycardic at 101 and hemoglobin was 15, BP was 138/89 and slight rise in her pulse was likely due to pain control. She was planning on doing PT and OT with no shoulder range of motion at that time and to hold formal PT at discharge due to intraoperative humerus fracture. Shoulder shrugs, elbow, wrist and hand motion only. DVT prophylaxis with aspirin 81 mg daily, and she was otherwise remaining stable and it was felt she could be discharged to home on 02/25/2020. For further review, please see chart. LABORATORY AND X-RAY DATA: As per chart. DISCHARGE INSTRUCTIONS: The patient was discharged to home in satisfactory condition on 02/25/2020. DIET: Regular. ACTIVITY: Follow total shoulder arthroplasty reverse instructions. No formal physical therapy until otherwise stated by Dr. Jaimes. Follow up with Dr. Jaimes or his PA in 12-14 days. The patient to call for appointment if one has not been made for you. DISCHARGE MEDICATIONS: Acetaminophen 1000 mg p.o. q. 8 hours, oxycodone 5-10 mg p.o. q. 4 hours p.r.n. Resume home meds as listed and stop taking Celebrex and meloxicam.
== END 2020-02-25 10:45 | disposition home or self-care (01) | DRG 483 ==
LOC: ASU 05:51 → 3E 12:18